=== PATIENT | male | born 2000 | race Caucasian/White ===

== ENCOUNTER 2024-05-04 06:33 | Day surgery (SDC) | payer BC ==
[2024-05-04] MEDS ORDERED: Sodium Chloride 0.9% 2.5 ML Syringe FLUSH PRN ×2 (06:54→09:23)
[2024-05-04] MEDS ORDERED: Sodium Chloride 0.9% 10 ML Syringe FLUSH PRN ×2 (06:54→09:23)
[2024-05-04 07:13] LABS: BASOPHILS ABSOLUTE AUTO 0.04 K/uL (0.00-0.20); BASOPHILS PERCENT AUTO 0.3 % (0.0-1.0); EOSINOPHILS ABSOLUTE AUTO 0.01 K/uL (0.00-0.45); EOSINOPHILS PERCENT AUTO 0.1 % (0.0-6.0); HEMATOCRIT 43.3 % (42.0-52.0); HEMOGLOBIN 15.1 g/dL (14.0-18.0); IMMATURE GRAN ABSOLUTE AUTO 0.04 K/uL (0.00-0.05); IMMATURE GRAN PERCENT AUTO 0.3 % (0.0-0.4); LYMPHOCYTES ABSOLUTE AUTO 1.32 K/uL (1.00-4.80); LYMPHOCYTES PERCENT AUTO 9.3 % (24.0-44.0); MEAN CORPUSCULAR HEMOGLOBIN 31.1 pg (28.0-32.0); MEAN CORPUSCULAR HGB CONC 34.9 g/dL (32.0-36.0); MEAN CORPUSCULAR VOLUME 89.1 fL (83.0-99.0); MEAN PLATELET VOLUME 9.7 fL (9.4-12.4); MONOCYTES ABSOLUTE AUTO 1.06 K/uL (0.00-0.80); MONOCYTES PERCENT AUTO 7.5 % (0.0-8.0); NEUTROPHILS ABSOLUTE AUTO 11.72 K/uL (1.80-7.70); NEUTROPHILS PERCENT AUTO 82.5 % (41.0-71.0); PLATELET COUNT,PLT 227 K/uL (150-400); RED BLOOD CELL COUNT 4.86 M/uL (4.52-5.90); WHITE BLOOD CELL COUNT,WBC 14.19 K/uL (3.9-11.3)
[2024-05-04] MEDS: Ketorolac 30 MG/ML SDV IVPUSH ONE (07:33)
[2024-05-04 07:35] LABS: A/G RATIO 1.2 (0.9-1.6); ALBUMIN 4.1 g/dL (3.4-5.0); BILIRUBIN TOTAL 0.5 mg/dL (0.2-1.0); CALCIUM 9.3 mg/dL (8.5-10.1); CARBON DIOXIDE,CO2 30.2 mmol/L (21.0-32.0); CREATININE 0.9 mg/dL (0.8-1.3); EST CRCL DRUG DOSING (CG) 140.11 mL/min; POTASSIUM,K 4.8 mmol/L (3.5-5.1); PROTEIN TOTAL,TP 7.5 g/dL (6.4-8.2)
[2024-05-04] MEDS: Iopamidol 755 Mg/ML 100 ML Bottle IVPUSH ONE (07:44)
[2024-05-04] MEDS: Sodium Chloride 0.9% 1,000 ML IV STA (07:51)
[2024-05-04] MEDS: Piperacillin/Tazobactam 4.5 GM in Sodium Chloride 0.9% 100 ML IV ONE (08:35)
[2024-05-04] MEDS ORDERED: Midazolam 1 MG/ML 2 ML SDV ONE (09:05)
[2024-05-04] MEDS ORDERED: fentaNYL 100 MCG/2 ML SDV ONE (09:05)
[2024-05-04] MEDS ORDERED: Propofol 200 MG/20 ML SDV ONE (09:05)
[2024-05-04] MEDS ORDERED: Rocuronium Bromide 50 MG/5 ML Syringe ONE (09:08)
[2024-05-04] MEDS ORDERED: Water For Injection, Sterile 20 ML ONE (09:08)
[2024-05-04] MEDS ORDERED: dexmedeTOMIDine HCl 200 MCG/2 ML SDV ONE (09:08)
[2024-05-04] MEDS ORDERED: Lidocaine 2% 5 ML SDV ONE (09:10)
[2024-05-04] MEDS ORDERED: Bupivacaine 0.5% 30 ML SDV ONE (09:18)
[2024-05-04] MEDS ORDERED: Ropivacaine 0.5% 5 MG/ML 30 ML SDV ONE (09:19)
[2024-05-04] MEDS ORDERED: Sodium Chloride 0.9% 20 ML SDV IV PRN (09:23)
[2024-05-04] MEDS ORDERED: Lactated Ringers 1,000 ML IV SCH (09:30)
[2024-05-04 09:43] LABS: APPEARANCE,URINE CLEAR; BILIRUBIN,URINE NEGATIVE (NEGATIVE); COLOR,URINE YELLOW; GLUCOSE,URINE NEGATIVE (NEGATIVE); KETONES,URINE NEGATIVE (NEGATIVE); LEUKOCYTE ESTERASE,URINE NEGATIVE (NEGATIVE); NITRITE,URINE NEGATIVE (NEGATIVE); OCCULT BLOOD,URINE NEGATIVE (NEGATIVE); PH,URINE 7.5 (5.0-8.0); PROTEIN,URINE NEGATIVE (NEGATIVE); UROBILINOGEN,URINE 0.2 EU/dL (<2.0)
[2024-05-04] MEDS ORDERED: Dexamethasone 4 MG/ML 5 ML MDV ONE (10:16)
[2024-05-04] MEDS ORDERED: Sugammadex Sodium 200 MG/2 ML VIAL IV ONE (10:16)
[2024-05-04] MEDS ORDERED: Ondansetron 4 MG/2 ML SDV ONE (10:16)
[2024-05-04] MEDS ORDERED: Ketorolac 30 MG/ML SDV ONE (10:34)
[2024-05-04] MEDS ORDERED: HYDROmorphone 2 MG/ML Syringe IVPUSH PRN (11:08)
[2024-05-04] MEDS: Acetaminophen/oxyCODONE 325-5 MG Tab PO PRN (14:23)
== END 2024-05-04 14:35 | disposition home or self-care (01) ==
LOC: MW.ED 06:33 → MW.SDS 08:39 → MW.MS 11:45 → MW.SDS 14:35
PROVIDERS: ATTEND Surgery
DX: K35.33 Acute appendicitis with perforation, localized peritonitis, and gangrene, with abscess (principal)
CPT/HCPCS: 36415; 44970; 74177; 80053; 81003; 83690; 85025; 96361; 96365; 96375; 99285; A9270; J0131; J0665; J1100; J1885; J2250; J2405; J2543; J2704; J2795; J3010; J3490; J7030; Q9967; 00840; 64486